=== PATIENT | male | born 1980 | race African-American/Black ===

== ENCOUNTER 2016-12-07 12:40 | Emergency (ER) | payer SELFPAY ==
[~2016-12-07] VITALS: Ht 172.7 cm; Wt 75.0 kg
[2016-12-07 12:42] VITALS: BP 128/86
== END 2016-12-07 17:05 | disposition left against medical advice (07) ==
LOC: ER 12:52
DX: R42 Dizziness and giddiness (principal)

== ENCOUNTER 2020-01-31 03:41 | Emergency (ER) | payer MEDICAID ==
[~2020-01-31] VITALS: Ht 177.8 cm; Wt 73.0 kg
[2020-01-31 06:50] VITALS: BP 102/70
== END 2020-01-31 06:52 | disposition home or self-care (01) ==
LOC: ER 03:41
DX: R00.2 Palpitations (principal)
CPT/HCPCS: 93005; 99283

== ENCOUNTER 2020-08-14 01:30 | Emergency (ER) | payer SELFPAY ==
[~2020-08-14] VITALS: Ht 172.7 cm; Wt 73.0 kg
[2020-08-14 01:33] VITALS: BP 137/83
== END 2020-08-14 01:40 | disposition left against medical advice (07) ==
LOC: ER 01:30
DX: Z53.21 Procedure and treatment not carried out due to patient leaving prior to being seen by health care provider (principal)

== ENCOUNTER 2021-05-15 00:35 | Emergency (ER) | payer OTHER ==
[~2021-05-15] VITALS: Ht 177.8 cm; Wt 73.0 kg
[2021-05-15 02:24] LABS: BASOPHILS % 0.5 % (0.0-2.0); EOSINOPHILS % 0.4 % (0.0-5.0); HEMATOCRIT. 44.8 % (42.0-52.0); HEMOGLOBIN. 15.8 g/dL (14.0-18.0); LYMPHOCYTES % 36.3 % (20.0-50.0); MEAN CORPUSCULAR HEMOGLOBIN 28.3 pg (28.0-32.0); MEAN CORPUSCULAR VOLUME 80.4 fL (80.0-94.0); MEAN PLATELET VOLUME 8.4 fl (7.4-10.4); MONOCYTES % 10.7 % (2.0-8.0); NEUTROPHILS % 52.1 % (40.0-76.0); PLATELET 251 x1000/uL (130-400); RED BLOOD CELL COUNT 5.57 mill/uL (4.7-6.1)
[2021-05-15 02:33] LABS: CHLORIDE 103 mEq/L (98-107)
[2021-05-15 04:00] VITALS: BP 116/75
== END 2021-05-15 04:09 | disposition home or self-care (01) ==
LOC: EDUNIT# 01:00 → ER 01:00
DX: R00.2 Palpitations (principal)
CPT/HCPCS: 36415; 80053; 84443; 84484; 85025; 93005; 99284